=== PATIENT | male | born 1975 | race Caucasian/White ===

== ENCOUNTER 2024-01-12 20:44 | Emergency (ER) | payer OTHER, SELFPAY ==
--- NOTE | ~2024-01-12 | XR_ITS ---
EXAMINATION: XR SHOULDER, LEFT CLINICAL INFORMATION: Acute pain, limited mobility COMPARISON: None available. TECHNIQUE: Three views of the left shoulder. FINDINGS: Glenohumeral alignment is anatomic. No acute fracture is seen. There is calcification lateral to the humeral head, suspicious for calcific rotator cuff tendinopathy. Acromioclavicular joint is intact with mild degenerative change. XR/XR shoulder LT min 2V IMPRESSION: No acute findings identified. Findings suspicious for calcific rotator cuff tendinopathy.
[2024-01-12 21:05] VITALS: BP 141/79; PULSE 86; RESP 18; TEMP 36.6; O2SAT 97; BMI 26.1
--- NOTE | 2024-01-13 00:40 | ED_ITS ---
HPI - Extremity Problem General Chief complaint: Extremity Injury, Upper Stated complaint: left shoulder pain Time Seen by Provider: 01/13/24 00:27 Source: patient Mode of arrival: ambulatory Limitations: no limitations History of Present Illness HPI Narrative: Patient comes to the emergency room complaining of 3-4 days of left shoulder pain. Patient states that it started after waking up at night, patient believes he slept wrong on his shoulder. Patient denies any trauma or heavy lifting. Patient denies any other symptoms. Related Data Previous Rx's Medication Instructions Recorded acetaminophen 500 mg tablet 500 mg PO Q6H PRN fever or pain 01/13/24 #30 tabs Allergies Allergy/AdvReac Type Severity Reaction Status Date / Time No Known Allergies Allergy Verified 01/12/24 21:09 Review of Systems Review of Systems: Constitutional : No Weight loss, No Fever, No Chills, No Night Sweats, No Fatigue, No Malaise ENT/Mouth : No Hearing loss, No Ear Pain, No Nasal Congestion, No Sinus Pain, No Hoarseness, No sore throat, No Rhinorrhea, No Swallowing Difficulty Eyes: No Eye Pain, No Swelling, No Redness, No Foreign Body, No Discharge, No Vision Changes Cardiovascular : No Chest Pain, No SOB, No Dyspnea on Exertion, No Orthopnea, No Edema, No Palpitations Respiratory : No Cough, No Sputum, No Wheezing, No Smoke Exposure, No Dyspnea Gastrointestinal : No Nausea, No Vomiting, No Diarrhea, No Constipation, No a bdominal Pain, No Hematochezia, No Melena Genitourinary : no irregular bleeding, No Dysuria, No Urinary Frequency, No Hematuria, No Urinary Incontinence, No Urgency, No Flank Pain, No Urinary Flow Changes, No Hesitancy Musculoskeletal : Complaining of 4 days of left shoulder pain, No Myalgias, No Joint Swelling Skin : No Skin Lesions, No rash Neuro : No Weakness, No Numbness, No Paresthesias, No Loss of Consciousness, No Dizziness, No Headache Psych : No Anxiety/Panic, No Depression, No SI/HI/AH/VH, No Social Issues, Heme/Lymph: No Bruising, No Bleeding,No Lymphadenopathy Endocrine : No Polyuria, No Polydipsia, No Temperature Intolerance PMFSH Social History Social History Advance Directives: No Advance Directives Information Provided: No Physical Exam Vital Signs: Vital Signs: Last Vital Signs Temp 97.9 F 01/12/24 21:05 Pulse 86 01/12/24 21:05 Resp 18 01/12/24 21:05 BP 141/79 H 01/12/24 21:05 Pulse Ox 97 01/12/24 21:05 O2 Del Method Room Air 01/12/24 21:05 BMI result Body Mass Index 26.1 Const: Other: Appearance: Alert. Oriented X3. No acute distress. Eyes: Pupils equal, round and reactive to light. ENT: Pharynx normal. Neck: Normal inspection. Neck supple. No lymph nodes noted. No crepitus CVS: Normal heart rate and rhythm. Pulses normal. Normal S1 and S2 Respiratory: No respiratory distress. Breath sounds normal. No Wheezing. No rales Abdomen: Soft and nontender. No rigidity. No distention. Skin: Skin warm and dry. Normal skin color. Normal skin turgor. Extremities: Patient able to the has arm/abduct up to 90 degrees. Patient is able to abduct up to 180 passively but hurts doing so. No Lacerations. No Rash Neuro: Oriented X 3. No motor deficit. No sensory deficit. Moving all extremities. No slurred speech. CN 2 through 12 grossly intact Psych: calm, cooperative, normal affect Medical Decision Making Medical Decision Making MDM Narrative: -I discussed the physical exam and radiology with the patient, patient likely having calcific tendinitis -my interpretation of x-ray of the shoulder, no misalignment, no fracture or dislocation. Differential Diagnosis Differential Diagnoses: The differential diagnosis associated with the presentation includes (Calcific tendinitis, fracture, dislocation) Independent Interpretation I performed an independent interpretation of an: Plain X-Ray Radiology Impression Discussion of test interpretation with radiology: I have reviewed the radiologist's reading. Radiologist Impression: Glenohumeral alignment is anatomic. No acute fracture is seen. There is calcification lateral to the humeral head, suspicious for calcific rotator cuff tendinopathy. Acromioclavicular joint is intact with mild degenerative change. XR/XR shoulder LT min 2V IMPRESSION: No acute findings identified. Findings suspicious for calcific rotator cuff tendinopathy. Discharge Plan Discharge Clinical Impression: Calcific shoulder tendinitis Patient Disposition: Home, Self-Care Instructions: Calcific Tendinitis (ED) Additional Instructions: Please follow-up with your primary care physician tomorrow. If you have any worsening or new symptoms, please return to the emergency room or call 911 Prescriptions: New acetaminophen 500 mg tablet 500 mg PO Q6H PRN (Reason: fever or pain) Qty: 30 0RF Referrals: Deepti Mcguire PA-C [Physician Materials Planning Analyst] - 01/14/24
[2024-01-13 00:59] VITALS: BP 133/81; PULSE 77; RESP 18; TEMP 36.6; O2SAT 95
[2024-01-13 01:25] VITALS: BP 133/81; PULSE 77; RESP 18; TEMP 36.6; O2SAT 95
== END 2024-01-13 01:15 | disposition home or self-care (01) ==
PROVIDERS: Emergency Provider Emergency Medicine
DX: M75.32 Calcific tendinitis of left shoulder (principal)
CPT/HCPCS: 73030; 99283